=== PATIENT | male | born 2000 | race Caucasian/White ===

== ENCOUNTER 2022-08-02 14:28 | Emergency (ER) | payer OTHER ==
--- NOTE | 2022-08-02 15:50 | NUR ---
PT TRIAGED. PT STABLE. PLACED PT IN WAITING AREA. WILL CONTINUE TO MONITOR
[2022-08-02 15:53] VITALS: BP_SYST 133
--- NOTE | 2022-08-02 17:22 | NUR ---
Patient to ER bed H1 to gown for evaluation. Side rails up.
--- NOTE | 2022-08-02 17:30 | NUR ---
ER at bedside examining patient.
[2022-08-02 18:08] VITALS: BP_SYST 133
--- NOTE | 2022-08-02 18:08 | NUR ---
Patient given written and verbal discharge instructions and verbalizes understanding. ER MD discussed with patient the results and treatment provided. Patient in stable condition. ID arm band removed. Patient educated on pain management and to follow up with PMD. Opportunity for questions provided and answered. Medication side effect fact sheet provided.
== END 2022-08-02 18:06 | disposition home or self-care (01) ==
LOC: SED 14:28
DX: S16.1XXA Strain of muscle, fascia and tendon at neck level, initial encounter (principal); M54.6 Pain in thoracic spine; Z79.899 Other long term (current) drug therapy; V89.2XXA Person injured in unspecified motor-vehicle accident, traffic, initial encounter; Y93.89 Activity, other specified; Y92.89 Other specified places as the place of occurrence of the external cause; Y99.8 Other external cause status
CPT/HCPCS: 99281